=== PATIENT | male | born 1990 | race Hispanic/Latino ===

== ENCOUNTER 2019-07-18 07:39 | Day surgery (SDC) | payer OTHER, SELFPAY ==
[2019-07-18 08:20] LABS: Basophils % 0.3 % (0-1.3); Hematocrit 38.3 % (39.6-49.0); Lymphocytes % 8.3 % (15.3-44.8); MPV 8.3 fL (7.6-11.3); RBC Red Blood Cell Count 4.58 M/uL (4.33-5.43)
[2019-07-18] MEDS ORDERED: CEFAZOLIN/SWI 1gm 1 GM/10 ML SYR ONE (08:59)
[2019-07-18] MEDS ORDERED: Ringers Lactate 1,000 ML IV ONE (08:59)
[2019-07-18] MEDS ORDERED: METHYLENE BLUE 0.5% 10 ML AMP ONE (09:58)
[2019-07-18] MEDS ORDERED: propofoL 200 MG/20 ML VIAL IV ONE (10:08)
[2019-07-18] MEDS ORDERED: FENTANYL CITR 100 MCG/2 ML ONE ×2 (10:09→10:47)
[2019-07-18] MEDS ORDERED: ROCURONIUM 50 MG/5 ML VIAL IV ONE (10:09)
[2019-07-18] MEDS ORDERED: LIDOCAINE 1% MPF 5 ML VIAL ONE (10:09)
[2019-07-18] MEDS ORDERED: MIDAZOLAM HCL 2 MG/2 ML INJ ONE (10:09)
[2019-07-18] MEDS ORDERED: GLYCOPYRROLATE 0.2 MG/ML SYR ONE (10:48)
[2019-07-18] MEDS ORDERED: KETOROLAC 30 MG/ML INJ ONE (10:49)
[2019-07-18] MEDS ORDERED: ONDANSETRON 4 MG/2 ML VIAL ONE (10:50)
[2019-07-18] MEDS ORDERED: NEOSTIGMINE 1 MG/ML -5 ML ONE (10:50)
[2019-07-18] MEDS ORDERED: HYDROMORPHONE HCL 1 MG/ML INJ ONE (11:26)
[2019-07-18 11:38] VITALS: TEMP 98.6
[2019-07-18 11:45] VITALS: O2SAT 98
[2019-07-18] MEDS ORDERED: HYDROCODONE/APAP 7.5/325 MG TAB ONE (12:17)
--- NOTE | 2019-07-18 12:57 | OP ---
Date of Procedure: 07/18/2019 Surgeon: Noah Dao MD Preoperative Diagnosis: Pilonidal abscess. Postoperative Diagnosis: Pilonidal abscess. Procedure: Incision, drainage, and debridement of pilonidal abscess. Estimated Blood Loss: Minimal. Specimens: Pus and necrotic tissue. Findings: As above. Anesthesia: General. Complications: None. Patient tolerated the procedure in stable condition, taken to Recovery in good general condition. Procedure In Detail: Patient was brought to the OR and placed in supine position. General anesthesi a was begun. Patient was placed in the prone position, prepped and draped in usual sterile fashion. Then, a punctum was identified in the bottom of the cyst, where the probe was used to explore it and methylene blue was injected. The abscess itself was approximately 10 x 12 cm between the gluteal cr eases in the superior aspect. Then, an ellipse of skin approximately 10 x 8 cm was made to excise al l the necrotic tissue. Pus was evacuated and dissection proceeded all the way down to the presacral fascia. All inflammatory tissue was excised and sent to Pathology. Cultures were done. Wound was i rrigated. Bleeding was controlled with cautery. A large defect remained, however, it was healthy ti ssue all the way around and then wet-to-dry normal saline dressing change was applied. Patient was a wakened and taken to Recovery in good general condition. Discharge Note: Patient went to Day Surgery and home when stable. Disposition: Home. Condition: Stable. Discharge Instructions: Resume home medications and diet. Activity as tolerated. No heavy lifting. Wet-to-dry normal saline dressing changes daily. Mother has been instructed. Patient has pain med icine and antibiotics incidentally already prior to coming to the hospital. We will follow up with t he patient phonically next week and will see him in 2 weeks. /MODL Voice ID: [id number] Report ID: [id number]
[2019-07-18 13:05] VITALS: BP 124/45
== END 2019-07-18 13:00 | disposition home or self-care (01) ==
LOC: OR 07:39
PROVIDERS: ATTEND Surgery
PROC: 0J990ZZ Drainage of Buttock Subcutaneous Tissue and Fascia, Open Approach (ICD-10-PCS; principal; 2019-07-18 10:30)
DX: L05.01 Pilonidal cyst with abscess (principal)
CPT/HCPCS: 36415; 85025; 87070; 87075; 87185; 87205; 88304; J0690; J1170; J2250; J2405; J2704; J2710; J3010; J7120